=== PATIENT | male | born 1935 | race African-American/Black ===

== ENCOUNTER → 2016-06-27 | Outpatient (CLI) | payer OTHER ==
[~2016-06-27] MED LIST: ALBUTEROL17 GM INH; AMLODIPINE BESYL5 MG PO; ANDROGEL TOP; ASPIRIN PO; ASPIRIN81 MG PO; CALCITRIOL0.5 MCG PO; COUMADIN PO; COUMADIN10 MG PO; COUMADIN5 MG PO; COUMADIN7.5 MG PO; FOLIC ACID1 MG PO; FUROSEMIDE40 MG PO; IRON325 ( 651 PO; KLOR-CON PO; LASIX PO; LASIX20 MG PO; LASIX80 MG PO; LEVOFLOXACIN500 MG PO; LO-DOSE ASPIRIN81 M1 PO; LOPRESSOR PO; LOTREL 10/20 MG1 CAP PO; LOTREL 5/10 MG1 CAP PO; MUCINEX DM ER1 EACH PO; OMNICEF300 MG PO; POTASSIUM CHLO10 MEQ PO; PROTONIX PO; SODIUM BICARBO650 MG PO; STOOL SOFTENER250 MG PO; SYNTHROID PO; SYNTHROID0.1 MG PO; SYNTHROID125 PO; TRAZODONE PO; ULORIC40 MG PO; VITAMIN D350000 UNIT PO; ZAROXYLYN PO
[2016-06-27 10:07] LABS: BASOPHIL% 1.2 % (0-2.5); EOSINOPHIL# 0.1 X10e3 (0-0.7); EOSINOPHIL% 3.9 % (0.0-7.0); HEMATOCRIT 28.9 % (38.0-50.0); HEMOGLOBIN 9.6 gm/dL (13.0-16.0); LYMPHOCYTE# 1.1 X10e3 (1.0-3.5); LYMPHOCYTE% 34.5 % (17.0-45.0); MEAN CELL VOLUME 86.7 FL (83-96); MEAN CORPUSCULAR HEMOGLOBIN 28.8 PG (28-34); MEAN CORPUSCULAR HGB CONC 33.2 g/dL (30-36); MEAN PLATELET VOLUME 8.2 FL (6.5-11.5); MONOCYTE# 0.4 X10e3 (0-1.0); MONOCYTE% 11.7 % (3.0-12.0); NEUTROPHIL# 1.6 X10e3 (1.5-7.1); NEUTROPHIL% 48.7 % (40-75); PLATELET COUNT 135 X10e3 (140-420); RED BLOOD COUNT 3.33 X10e (3.90-5.60); RED CELL DISTRIBUTION WIDTH 16.1 % (11.0-15.5); WHITE BLOOD COUNT 3.2 X10e3 (4.0-10.5)
[2016-06-27 10:15] LABS: DIFF IND NO
[2016-06-27 10:25] LABS: URINE APPEARANCE CLEAR; URINE BILIRUBIN NEG (NEG); URINE BLOOD NEG (NEG); URINE COLOR YELLOW; URINE GLUCOSE NEG (NEG); URINE KETONE NEG (NEG); URINE LEUKOCYTE ESTERASE NEG (NEG); URINE NITRATE NEG (NEG); URINE PROTEIN NEG (NEG); URINE SPECIFIC GRAVITY 1.008 (1.003-1.035)
[2016-06-27 10:31] LABS: URINE SOURCE CLEAN CATCH
[2016-06-27 11:15] LABS: BUN/CREATININE RATIO 9.72; CALCIUM SERUM 9.4 mg/dL (8.4-10.2); CREATININE SERUM 3.6 mg/dL (0.6-1.4); GLOM FILT RATE Estimated 21.1 mL/min (>60); PHOSPHOROUS 3.8 mg/dL (2.5-4.6); POTASSIUM 4.4 mmol/L (3.5-5.1)
[2016-07-02 14:57] LABS: CALCIUM (PTHINTACT) 9.5 mg/dL (8.6-10.3)
== END | disposition home or self-care (01) ==
LOC: CLAB 09:27
PROVIDERS: Internal Medicine Nephrology
DX: N18.4 Chronic kidney disease, stage 4 (severe) (principal); D63.1 Anemia in chronic kidney disease; E55.9 Vitamin D deficiency, unspecified
CPT/HCPCS: 36415; 80048; 81003; 82306; 82310; 82728; 83540; 83550; 83970; 84100; 85025

== ENCOUNTER → 2016-07-04 | Outpatient (CLI) | payer OTHER ==
--- NOTE | ~2016-07-04 | US85 ---
[facility] A Service of [facility] RADIOLOGY TEXT RESULTS PATIENT: BRYAN ARRIAGA LOCATION: CNIV : 36 UNIT #: [id number] AGE: [address]: Jasbir Knight MD SEX: M ORDER DR: [id number] [facility] [address] [place], [place] [address] [id number] O MR#: [id number] Acc #: [id number] NAME: BRYAN ARRIAGA : 1935 SEX: M STUDY DATE/TIME: 07/04/2016 11:16 UNIT: CNIV ROOM: STUDY DESCRIPTION: LE MUBI Unilat or Ltd Stdy Attending Physician: Jasbir Knight M.D. Referring Physician: Jasbir Knight M.D. Ordering Physician: Jasbir Knight M.D. Primary Care Physician: Max Ambriz Jr., M.D. MEDICAL IMAGING REPORT This report is preliminary unless electronic signature is present EXAM Left leg vein Doppler 07/04/2016 INDICATION Left leg pain and swelling for the last 2 days. TECHNIQUE Venous ultrasound examination of the left lower extremity was performed using grayscale, spectral Doppler and color flow Doppler imaging. FINDINGS The examination is negative. There is no evidence of left lower extremity deep venous thrombus from the groin to the lower calf. Visualized greater saphenous vein is also patent. IMPRESSION Negative examination. No evidence of left lower extremity deep venous thrombosis. Dictated by... Lee Hollingsworth Jr., M.D. THIS IS AN ELECTRONICALLY VERIFIED REPORT Lee Hollingsworth Jr., M.D. at 07/04/2016 4:20 PM HOLLI/malathi TD: 07/04/2016 16:12 JOB #: [id number] MEDICAL IMAGING REPORT COPY
== END | disposition home or self-care (01) ==
LOC: CNIV 10:40
DX: N18.3 Chronic kidney disease, stage 3 (moderate) (principal); D63.1 Anemia in chronic kidney disease; E23.6 Other disorders of pituitary gland; D50.9 Iron deficiency anemia, unspecified; M79.89 Other specified soft tissue disorders
CPT/HCPCS: 93971

== ENCOUNTER → 2016-07-12 | Outpatient (CLI) | payer OTHER ==
[2016-07-12 11:24] LABS: BUN/CREATININE RATIO 11.17; CALCIUM SERUM 9.5 mg/dL (8.4-10.2); CREATININE SERUM 3.4 mg/dL (0.6-1.4); GLOM FILT RATE Estimated 18.7 mL/min (>60); POTASSIUM 4.5 mmol/L (3.5-5.1)
== END | disposition home or self-care (01) ==
LOC: CLAB 09:09
PROVIDERS: Internal Medicine Nephrology
DX: N18.4 Chronic kidney disease, stage 4 (severe) (principal)
CPT/HCPCS: 36415; 80048

== ENCOUNTER → 2016-08-05 | Outpatient (CLI) | payer OTHER | END | disposition home or self-care (01) | LOC: CSSDAY 09:55 | DX: D50.9 Iron deficiency anemia, unspecified (principal); Z79.899 Other long term (current) drug therapy | CPT/HCPCS: 96374; Q0138 ==

== ENCOUNTER → 2016-08-12 | Outpatient (CLI) | payer OTHER | END | disposition home or self-care (01) | LOC: CSSDAY 09:40 | DX: D50.9 Iron deficiency anemia, unspecified (principal); Z79.899 Other long term (current) drug therapy | CPT/HCPCS: 96374; Q0138 ==

== ENCOUNTER → 2016-09-10 | Outpatient (CLI) | payer OTHER ==
[2016-09-10 11:03] LABS: URINE APPEARANCE CLEAR; URINE BILIRUBIN NEG (NEG); URINE BLOOD NEG (NEG); URINE COLOR YELLOW; URINE GLUCOSE NEG (NEG); URINE KETONE NEG (NEG); URINE LEUKOCYTE ESTERASE NEG (NEG); URINE NITRATE NEG (NEG); URINE PH 7.5 (5-8); URINE PROTEIN NEG (NEG); URINE SPECIFIC GRAVITY 1.013 (1.003-1.035)
[2016-09-10 11:07] LABS: BASOPHIL% 1.2 % (0-2.5); EOSINOPHIL# 0.1 X10e3 (0-0.7); EOSINOPHIL% 3.1 % (0.0-7.0); HEMATOCRIT 32.1 % (38.0-50.0); HEMOGLOBIN 10.3 gm/dL (13.0-16.0); LYMPHOCYTE# 1.1 X10e3 (1.0-3.5); LYMPHOCYTE% 30.9 % (17.0-45.0); MEAN CELL VOLUME 88.3 FL (83-96); MEAN CORPUSCULAR HEMOGLOBIN 28.4 PG (28-34); MEAN CORPUSCULAR HGB CONC 32.2 g/dL (30-36); MEAN PLATELET VOLUME 8.4 FL (6.5-11.5); MONOCYTE# 0.5 X10e3 (0-1.0); MONOCYTE% 14.2 % (3.0-12.0); NEUTROPHIL# 1.8 X10e3 (1.5-7.1); NEUTROPHIL% 50.6 % (40-75); PLATELET COUNT 139 X10e3 (140-420); RED BLOOD COUNT 3.63 X10e (3.90-5.60); RED CELL DISTRIBUTION WIDTH 15.4 % (11.0-15.5); WHITE BLOOD COUNT 3.6 X10e3 (4.0-10.5)
[2016-09-10 11:09] LABS: DIFF IND NO
[2016-09-10 11:55] LABS: CALCIUM SERUM 9.8 mg/dL (8.4-10.2); CREATININE SERUM 4.4 mg/dL (0.6-1.4); GLOM FILT RATE Estimated 13.7 mL/min (>60); URIC ACID 5.1 mg/dL (2.6-7.2)
== END | disposition home or self-care (01) ==
LOC: CLAB 10:03
PROVIDERS: Internal Medicine Nephrology
DX: N18.4 Chronic kidney disease, stage 4 (severe) (principal)
CPT/HCPCS: 36415; 80048; 81003; 82728; 83540; 83550; 84550; 85025

== ENCOUNTER → 2016-11-04 | Outpatient (CLI) | payer OTHER ==
[2016-11-04 10:06] LABS: HEMATOCRIT 27.5 % (38.0-50.0); HEMOGLOBIN 9.1 gm/dL (13.0-16.0); MEAN CELL VOLUME 89.5 FL (83-96); MEAN CORPUSCULAR HEMOGLOBIN 29.8 PG (28-34); MEAN CORPUSCULAR HGB CONC 33.2 g/dL (30-36); MEAN PLATELET VOLUME 8.7 FL (6.5-11.5); RED BLOOD COUNT 3.07 X10e (3.90-5.60); RED CELL DISTRIBUTION WIDTH 15.2 % (11.0-15.5); WHITE BLOOD COUNT 3.8 X10e3 (4.0-10.5)
[2016-11-04 10:48] LABS: CALCIUM SERUM 9.3 mg/dL (8.4-10.2); CREATININE SERUM 3.4 mg/dL (0.6-1.4); GLOM FILT RATE Estimated 18.7 mL/min (>60); POTASSIUM 4.1 mmol/L (3.5-5.1)
== END | disposition home or self-care (01) ==
LOC: CLAB 09:17
PROVIDERS: Surgery Vascular Surgery
DX: I12.9 Hypertensive chronic kidney disease with stage 1 through stage 4 chronic kidney disease, or unspecified chronic kidney disease (principal); N18.9 Chronic kidney disease, unspecified
CPT/HCPCS: 36415; 80048; 85027

== ENCOUNTER → 2016-11-11 | Day surgery (SDC) | payer OTHER ==
--- NOTE | ~2016-11-11 | EKG ---
PATIENT: BRYAN ARRIAGA UNIT #: [id number] Ventricular Rate: 60 BPM Atrial Rate: 60 BPM P-R Interval: 304 ms QRS Duration: 196 ms Q-T Interval: 502 ms QTC Calculation(Bezet): 502 ms Calculated R Apison: -65 degrees Calculated T Apison: 104 degrees Diagnosis Line: Ventricular-paced rhythm Diagnosis Line: Abnormal ECG Diagnosis Line: When compared with ECG of 28-DEC-2015 10:19, Diagnosis Line: Rhythm p[aced Diagnosis Line: Confirmed by DENNISE HERNANDEZ MD ([id number]) on Diagnosis Line: 11/11/2016 8:27:10 PM INTERPRETING MD: SAKINA
--- NOTE | ~2016-11-11 | OR ---
Unit #: [id number] #: [id number] Patient: BRYAN ARRIAGA [id number] [address] [place], [place] [address] [id number] O MR#: [id number] NAME: BRYAN ARRIAGA ROOM: Date of Procedure: 11/11/2016 Admission Date: 11/11/2016 Surgeon: Karen Thompson M.D. : 1935 Attending Physician: Karen Thompson M.D. Primary Care Physician: Max Ambriz Jr., M.D. OPERATIVE REPORT FURNITURE ASSEMBLY SUPERVISOR Nikolay Aviles MD. PREOPERATIVE DIAGNOSIS Chronic renal failure. POSTOPERATIVE DIAGNOSIS Chronic renal failure. PROCEDURE PERFORMED Creation of a right brachiocephalic arteriovenous fistula. ANESTHESIA MAC. COMPLICATIONS None. ESTIMATED BLOOD LOSS 20 mL. SPECIMEN None. COMPLICATIONS None. INDICATIONS FOR PROCEDURE The patient is an 81-year-old gentleman with worsening renal function, who will require dialysis in the future. He had been recommended by his soda maker creation of a fistula in the event of needing dialysis. He was seen in the office with vein mapping demonstrating a good right cephalic vein for creation of a fistula. He was recommended a right radiocephalic fistula with possibility of brachiocephalic fistula. He was told of the planned procedure including the associated risks, benefits, complications, and alternatives including, but not limited to, possibility of bleeding, infection, fistula failure, fistula steal syndrome, and possible numbness to the forearm or hand. He understood and wished to proceed. DESCRIPTION OF PROCEDURE The patient was taken to the operating room, placed on the operating table Unit #: [id number] #: [id number] Patient: BRYAN ARRIAGA in supine position. Following MAC anesthesia, the patient's right arm circumferentially from the fingertips to the axilla was prepped and draped in the normal standard manner. Using ultrasound, the right cephalic vein at the level of the wrist was identified and was noted to be very small less than 2 mm in diameter. It was not appearing adequate for creation of a fistula. The radial artery was also noted to be quite calcified. Attention was directed to the antecubital fossa with ultrasound and the cephalic vein was identified. It appeared to be much improved in terms of its diameter and appeared to be more adequate for creation of a fistula. Decision was made to create the brachiocephalic fistula. 2% lidocaine was infused in a transverse fashion just below the antecubital fossa after the cephalic vein and the brachial artery had been mapped and marked on the skin. Incision was created transversely across the antecubital fossa and taken down through subcutaneous tissues with cautery. Dissection of the subcutaneous tissues with Metzenbaum scissors, identified the cephalic vein which was dissected free circumferentially along its entire length within the incision and then all side branches were doubly ligated and transected. The vein was then marked with a marking pen. The medial dissection overlying the brachial pulse was performed and the brachial artery was identified. The brachial artery was dissected free circumferentially proximally and distally and looped with vessel loops proximally and distally. Side branches were controlled with surgical clips. The patient was given heparin 10,000 units and allowed to circulate for 3 minutes. The cephalic vein was clamped distally with a right angle and proximally with a small bulldog and the vein was transected. The stump was tied with a 3-0 silk tie. The vein was distended with heparinized saline and appeared to be of excellent quality and caliber for a fistula. There was no obstruction to flushing. The vein was brought over to the brachial artery and proposed anastomotic site was identified. Using an 11-blade scalpel, an incision was created longitudinally on the brachial artery and extended with Ag scissors. The cephalic vein was anastomosed to the brachial artery with a 6-0 Prolene suture. Upon completion, flow was restored into the brachial artery and fistula with good thrill noted. There was a good radial pulse at the wrist. The heparin was reversed with protamine. A small amount of oozing was noted and controlled with cautery. No further bleeding was identified and the wound was closed in 2 layers with subcutaneous running 3-0 Vicryl suture and 4-0 Monocryl suture for skin. The incision was washed, dressing applied, and the procedure was terminated. The patient tolerated the procedure well and was taken to the recovery room in stable condition. All needle, sponge, and instrument counts were correct at the end of the case. Dictated by... Jody Guy/daria TD: 11/12/2016 03:30 JOB #: [id number] Unit #: [id number] #: [id number] Patient: BRYAN ARRIAGA OPERATIVE REPORT Page 1 of 1 X Karen Thompson MD PROCEDURE OPERATIVE NOTE
[2016-11-11 07:22] LABS: INR 1.2; PROTHROMBIN TIME (PATIENT) 13.1 SECONDS (10.0-11.7)
== END | disposition home or self-care (01) ==
LOC: CSUR 05:43
PROVIDERS: Surgery Vascular Surgery
DX: I12.9 Hypertensive chronic kidney disease with stage 1 through stage 4 chronic kidney disease, or unspecified chronic kidney disease (principal); N18.3 Chronic kidney disease, stage 3 (moderate); E03.9 Hypothyroidism, unspecified; I48.91 Unspecified atrial fibrillation; I25.10 Atherosclerotic heart disease of native coronary artery without angina pectoris; Q60.2 Renal agenesis, unspecified; E78.5 Hyperlipidemia, unspecified; M19.022 Primary osteoarthritis, left elbow; M19.041 Primary osteoarthritis, right hand; M17.11 Unilateral primary osteoarthritis, right knee; M19.012 Primary osteoarthritis, left shoulder; Z87.891 Personal history of nicotine dependence; Z79.899 Other long term (current) drug therapy; Z95.0 Presence of cardiac pacemaker; Z90.49 Acquired absence of other specified parts of digestive tract; Z98.890 Other specified postprocedural states
CPT/HCPCS: 85610; 93005; J0690; J1644; J2720; J3010

== ENCOUNTER → 2016-11-19 | Outpatient (CLI) | payer OTHER ==
[2016-11-19 09:48] LABS: URINE APPEARANCE CLEAR; URINE BILIRUBIN NEG (NEG); URINE BLOOD NEG (NEG); URINE COLOR YELLOW; URINE GLUCOSE NEG (NEG); URINE KETONE NEG (NEG); URINE LEUKOCYTE ESTERASE NEG (NEG); URINE NITRATE NEG (NEG); URINE PH 6.5 (5-8); URINE PROTEIN NEG (NEG); URINE UROBILINOGEN 0.2 MG/DL (NEG)
[2016-11-19 09:49] LABS: BASOPHIL% 0.8 % (0-2.5); EOSINOPHIL# 0.2 X10e3 (0-0.7); EOSINOPHIL% 3.8 % (0.0-7.0); HEMATOCRIT 26.5 % (38.0-50.0); LYMPHOCYTE# 0.9 X10e3 (1.0-3.5); LYMPHOCYTE% 21.7 % (17.0-45.0); MEAN CELL VOLUME 90.1 FL (83-96); MEAN CORPUSCULAR HEMOGLOBIN 30.5 PG (28-34); MEAN CORPUSCULAR HGB CONC 33.8 g/dL (30-36); MEAN PLATELET VOLUME 7.9 FL (6.5-11.5); MONOCYTE# 0.5 X10e3 (0-1.0); MONOCYTE% 10.8 % (3.0-12.0); NEUTROPHIL# 2.6 X10e3 (1.5-7.1); NEUTROPHIL% 62.9 % (40-75); PLATELET COUNT 129 X10e3 (140-420); RED BLOOD COUNT 2.94 X10e (3.90-5.60); WHITE BLOOD COUNT 4.2 X10e3 (4.0-10.5)
[2016-11-19 09:51] LABS: DIFF IND NO
[2016-11-19 10:00] LABS: URINE SOURCE CLEAN CATCH
[2016-11-19 11:10] LABS: CALCIUM SERUM 9.6 mg/dL (8.4-10.2); CREATININE SERUM 3.7 mg/dL (0.6-1.4); GLOM FILT RATE Estimated 16.9 mL/min (>60); PHOSPHOROUS 2.8 mg/dL (2.5-4.6); POTASSIUM 4.2 mmol/L (3.5-5.1)
[2016-11-21 16:09] LABS: CALCIUM (PTHINTACT) 9.7 mg/dL (8.6-10.3)
== END | disposition home or self-care (01) ==
LOC: CLAB 08:54
PROVIDERS: Internal Medicine Nephrology
DX: N18.5 Chronic kidney disease, stage 5 (principal); E55.9 Vitamin D deficiency, unspecified
CPT/HCPCS: 36415; 80048; 81003; 82306; 82310; 83970; 84100; 85025

== ENCOUNTER 2016-12-02 16:34 | Inpatient (IN) | payer OTHER ==
[~2016-12-02] VITALS: Ht 188 cm; Wt 169.4 kg
--- NOTE | ~2016-12-02 | DS ---
Unit #: [id number] #: [id number] Patient: BRYAN ARRIAGA [id number] [address] [place], [place] [address] [id number] I MR#: [id number] NAME: BRYAN ARRIAGA ROOM: 5 Age: 81 Sex: M Admission Date: 12/02/2016 : 1935 Discharge Date: 12/05/2016 Attending Physician: Jose Antonio Hinojosa M.D. Primary Care Physician: Max Ambriz Jr., M.D. DISCHARGE SUMMARY REVISED REPORT DISCHARGE DIAGNOSES 1. Acute on chronic kidney disease. 2. Mild fluid overload, multifactorial. 3. Dyspnea secondary to deconditioning and no other clinical pathology. 4. Permanent atrial fibrillation. 5. Status post permanent pacemaker. 6. Hypothyroidism. 7. Anemia. 8. Anxiety. 9. Nonobstructive coronary artery disease. 10. Moderate pulmonary hypertension. 11. Diastolic dysfunction, left ventricular ejection fraction of 50% to 55%. DISCHARGE MEDICATIONS 1. Sodium bicarb 650 mg 2 tablets p.o. every 12 hours. 2. Coumadin 10 mg p.o. every Friday through Friday and 7.5 mg p.o. every Friday and Friday. 3. Norvasc 5 mg p.o. at bedtime. 4. Lopressor 12.5 mg p.o. twice a day. 5. Lasix 80 mg every a.m. and 40 mg every p.o. 6. Protonix 40 mg p.o. daily. 7. Synthroid 100 mcg p.o. daily. 8. Folic acid 1 mg p.o. daily. 9. Calcitrol 1 mcg p.o. on Friday, Friday and Friday. 10. Vitamin D3 50,000 units p.o. weekly. 11. Uloric 40 mg p.o. daily. 12. Zaroxolyn 5 mg every Friday only. 13. Potassium chloride 10 mEq p.o. daily. HOSPITAL COURSE This is an 81-year-old -[place] male known to Dr. Hinojosa with a prior history of permanent AFib, permanent pacemaker placed in 2003, hypertension, hyperlipidemia, nonobstructive coronary artery disease, solitary kidney with chronic kidney disease, and ejection fraction of 54%. He follows with Dr. Leonard, nephrology and had an AV fistula placed a few weeks ago in anticipation of future dialysis. The patient presented to the emergency room with increasing dyspnea on exertion and lower extremity edema. He also had some abdominal swelling. He denied any angina, chest pain or pain his neck. His chest x-ray showed mild vascular congestion and mild diffuse bilateral interstitial prominence. His EKG showed AFib with controlled ventricular rates. Patient was admitted for evaluation Unit #: [id number] #: [id number] Patient: BRYAN ARRIAGA and management. Nephrology was consulted to manage his diuresis. He was placed on fluid restriction with strict I and O and daily weights. He was diuresed with Lasix and Zaroxolyn. His fluid overload status improved; however, he continued to complain of dyspnea. Pulmonary was consulted to evaluate for underlying COPD. On 12/05/2016, Dr. Hartley did see the patient. He will followup with him as outpatient for PFTs and sleep studies. Today he feels better with no shortness of air, no chest pain and no palpitations. His volume status is improved. He is stable for discharge today. He will be discharged home after being seen by Dr. Hartley and Dr. Leonard. We will followup with him in the office in one month. He is to remain on a 2000 mL fluid restriction. We will ask [facility] to see him for possible home PT and OT. PHYSICAL EXAMINATION VITAL SIGNS: Temp 98.7, heart rate 59, respiratory rate 20, blood pressure 121/44. NECK: No JVD. CHEST: Clear to auscultation. Nonlabored respirations. HEART: S1 and S2. Irregularly, irregular rhythm. ABDOMEN: Soft, nontender and nondistended. EXTREMITIES: Pedal pulses are palpable. There is 1+ pedal edema. DIAGNOSTIC STUDIES LABORATORY RESULTS: Glucose 86, BUN 36, creatinine 3.7, sodium 137, potassium 3.8, chloride 102, magnesium 1.9. INR yesterday was 2.7. Hemoglobin 8.8, hematocrit 25.7, white blood cell count 4, platelets 115. CARDIOVASCULAR STUDIES: EKG reveals a paced rhythm. Echocardiogram done 12/03/2016 shows LVEF of 50% to 55%, moderate MR and TR, RVSP 51 mmHg consistent with moderate pulmonary hypertension, and mild left ventricular hypertrophy. DISCHARGE INSTRUCTIONS 1. If okay with Dr. Hartley and Dr. Leonard, the patient will be discharged home today to followup with Dr. Hinojosa in the office on 01/06/2017 at 3:00 p.m. 2,000 mL fluid restriction at home. 2. Will ask [facility] to see patient for possible home PT and OT. 3. Have PT and INR checked in our office in two weeks. 4. Home medications per medication reconciliation sheet. Prescriptions provided for new medications. 5. Follow with Dr. Hartley in two to four weeks. 6. Follow with Dr. Leonard as his instructions. 14. 1. Dictated by... Maryam Flores APRN for Jose Antonio Hinojosa M.D. JONATHON/henry TD: 12/06/2016 11:43 JOB #: [id number] CC: Herminio/dlision Please Delete Unit #: [id number] #: [id number] Patient: DEVON ARRIAGAO DISCHARGE SUMMARY Page 1 of 1 X X DISCHARGE SUMMARY
--- NOTE | ~2016-12-02 | HP ---
Unit #: [id number] #: [id number] Patient: BRYNA ARRIAGA [id number] [address] [place], [place] [address] [id number] I MR#: [id number] NAME: BRYAN ARRIAGA ROOM: 565 Age: 81 Sex: M Admission Date: 12/02/2016 : 1935 Attending Physician: Jose Antonio Hinojosa M.D. Referring Physician: Jose Antonio Hinojosa M.D. Primary Care Physician: Max Ambriz Jr., M.D. HISTORY AND PHYSICAL HISTORY OF PRESENT ILLNESS This is an 81-year-old male who is known to Dr. Hinojosa who has permanent atrial fibrillation and has a pacemaker that was placed back in 2013, hypertension, and hyperlipidemia, as well as cath that showed some nonobstructive CAD. His last ejection fraction was found to be 54%. Patient also has chronic kidney disease. He has a solitary kidney from . He does follow with Dr. Leonard. He had an AV fistula placed a few weeks ago for anticipation of dialysis in the terminologist. Patient came to the emergency room with complaints of increased shortness of breath. He was sent by Dr. Ambriz for admission. He complained to Dr. Ambriz that his exertional shortness of breath was worsening, and he was very swollen. He had increased abdominal girth. His states that he cannot hardly button his shirt, and that has happened over the past couple of months. He denies any chest pain or pain in his neck or bilateral jaw, shoulders, arms, or elbows. He denies any palpitations, no dizziness, presyncope, or syncope. He has not had any increased cough, fever, or chills. In the emergency room, patient's blood pressure was 147/64, heart rate 61, respirations 16, temperature 97.3, and O2 saturation was 100% on room air. His chest x-ray showed some mild vascular congestion and mild diffuse bilateral interstitial prominence. His EKG shows atrial fibrillation with rates controlled at 63 beats per minute. Initial labs: BUN is 30 with creatinine of 3.6 and eGFR is 17.4. BNP is 182. INR is 2.7. WBC 3.6, hemoglobin 8.7, and platelets are down to 122,000. Initial cardiac enzymes are negative. Patient was admitted for further evaluation and management. Also, Nephrology was consulted. PAST MEDICAL HISTORY 1. Stage 4 chronic kidney disease. Had an AV fistula placed recently. 2. Nonobstructive CAD. Last cardiac cath in 2011 showed left main normal, LAD 20-30% stenosis, left circumflex 10-30%, and RCA had 20% stenosis. 3. In 2011, 2D echo with LVEF of 54%, mild MR, and mild TR. 4. Permanent atrial fibrillation, on anticoagulation with Coumadin. 5. Permanent pacemaker, [employer], for sick sinus syndrome, in 2013. 6. Hypertension. 7. Hyperlipidemia. 8. Hypothyroidism. 9. Congenital solitary kidney abnormality. 10. Former smoker. 11. Osteoarthritis. 12. Anemia due to chronic kidney disease. Unit #: [id number] #: [id number] Patient: BRYAN ARRIAGA 13. Obesity. PAST SURGICAL HISTORY 1. Cholecystectomy. 2. Permanent pacemaker in 2013. 3. AV fistula placement. 4. Finger surgery. 5. December 2015 colonoscopy with snare polypectomy. 6. December 2015 EGD showed mild gastritis and a small hiatal hernia, otherwise normal. HOME MEDICATIONS 1. Calcitriol 1 mcg p.o. on Friday, Friday, and Friday. 2. Uloric 40 mg p.o. daily. 3. Sodium bicarbonate 1300 mg p.o. twice daily. 4. Protonix 40 mg p.o. daily. 5. Amlodipine 5 mg p.o. daily at bedtime. 6. Vitamin D3 at 50,000 units p.o. weekly. 7. Lasix 40 mg p.o. b.i.d. 8. Folic acid 1 mg p.o. daily. 9. Coumadin 10 mg daily except 1-1/2 tablets on Friday and . 10. Synthroid 100 mcg p.o. daily. ALLERGIES No known drug allergies. SOCIAL HISTORY Patient lives with his spouse. He quit smoking more than 22 years ago. No alcohol or illicit drug abuse. FAMILY HISTORY His brother from a myocardial infarction. His mother had a pacemaker and congestive heart failure. REVIEW OF SYSTEMS CONSTITUTIONAL: Denies fever or chills. Has recently gained maybe up to 10 pounds over the last couple of months. HEENT: No visual or hearing changes. NECK: No lymphadenopathy or thyromegaly and no difficulty swallowing. CARDIOVASCULAR: Denies chest pain and denies palpitations. Increased lower extremity edema noted. PULMONARY: Increased shortness of breath with minimal exertion which is worsening. Has three or four pillow orthopnea which has not changed. Denies paroxysmal nocturnal dyspnea. GASTROINTESTINAL: Denies nausea, vomiting, diarrhea, or abdominal pain. NEUROLOGICAL: No focal weakness. PHYSICAL EXAMINATION GENERAL: Patient is an 81-year-old male in no acute respiratory distress. He is awake, alert, and oriented. VITAL SIGNS: Blood pressure is 128/50, heart rate 62, respirations 18, temperature 97.4, and O2 saturations 98% on room air. NECK: Trachea midline. No thyromegaly or lymphadenopathy. Increased JVD. HEART: S1 and S2, regular rate and rhythm. A grade 1/6 systolic murmur at the apex. No clicks or rubs. LUNGS: Diminished but clear. ABDOMEN: Obese, distended, and slightly firm. EXTREMITIES: Pedal pulses are palpable. With 1+ pedal edema. Unit #: [id number] #: [id number] Patient: BRYAN ARRIAGA DIAGNOSTIC STUDIES LABORATORY: Glucose 101, BUN 29, creatinine 3.5, eGFR 18, sodium 136, potassium 3.7, chloride 102, CO2 of 27, calcium 9.2, phosphorus is 2.8, total protein 7.6, albumin 4.2, bilirubin total 0.8, AST 20, ALT 10, and alkaline phosphatase is 126. BNP is 182. TSH is 3.66. WBC 3.8, hemoglobin 8.4, hematocrit 25.7, and platelets are 121,000. Initial cardiac enzymes: CK-MB is less than 1.0 and troponin less than 0.05. Pro time is 29.4 and INR is 2.7. IMAGING: Chest x-ray shows mild cardiac enlargement, mild vascular congestion, and mild diffuse bilateral interstitial prominence. CARDIOLOGY: EKG shows atrial fibrillation with controlled ventricular rate of 63 beats per minute. Ventricular-paced underlying atrial fibrillation. IMPRESSION 1. Dyspnea on exertion, questionable diastolic dysfunction or worsening chronic kidney failure. 2. Permanent atrial fibrillation, on anticoagulation. 3. Permanent pacemaker. 4. Hypertension. 5. Hyperlipidemia. 6. Anemia of chronic disease. 7. History of gout. 8. Obesity. PLAN 1. Cardiology consulted to assist with evaluation and management. 2. Nephrology has been consulted since his BUN and creatinine are elevated for their recommendations or for diuresing. They have ordered Lasix 40 mg IV b.i.d. with a 1500 mL/24-hour fluid restriction with strict intake and output and daily weights. 3. Patient is going to be started on Epogen for his anemia. 4. Obtain a 2D echo to evaluate LV function and valves. 5. Add a T4 to his TSH. 6. Add low-dose beta cynthia metoprolol 12.5 mg p.o. twice daily because he has a history of some mild nonobstructive CAD and also for his possible diastolic dysfunction. 7. Dietitian to advise on a weight-reducing diet, encourage lifestyle changes, and increase activity. PT/OT to evaluate and treat. 8. On exam, there are no signs or symptoms of unstable angina, cardiac enzymes are negative, and EKG does not show anything acute. 9. Further recommendations pending Nephrology. Dictated by Savanna Bill A.P.R.N. for Jody Brandt/florentin TD: 12/03/2016 14:58 JOB #: [id number] Unit #: [id number] #: [id number] Patient: BRYAN ARRIAGA HISTORY AND PHYSICAL Page 1 of 1 X Savanna Bill APRN HISTORY AND PHYSICAL
--- NOTE | ~2016-12-02 | CR63 ---
[facility] A Service of [facility] & [facility] RADIOLOGY TEXT RESULTS PATIENT: BRYAN ARRIAGA LOCATION: [facility] [id number] : [birth year] UNIT #: [id number] AGE: [address]: Jose Antonio Hinojosa MD SEX: M ORDER DR: [id number] [facility] [address] [place], [place] [address] [id number] I MR#: [id number] Acc #: [id number] NAME: BRYAN ARRIAGA : 1935 SEX: M STUDY DATE/TIME: 12/02/2016 21:35 UNIT: [facility] ROOM: [facility] STUDY DESCRIPTION: CR Chest 2 View Attending Physician: Jose Antonio Hinojosa M.D. Ordering Physician: Ed Doctor [id number] [facility] Primary Care Physician: Max Ambriz Jr., M.D. MEDICAL IMAGING REPORT This report is preliminary unless electronic signature is present EXAM PA and lateral chest HISTORY Shortness of air for 3 months. FINDINGS Two views of the chest demonstrate mild cardiac enlargement and mild vascular congestion. There is also mild diffuse bilateral interstitial prominence and this could be due to interstitial edema or nonspecific pneumonitis. No focal infiltrates or effusions. Left subclavian pacer lead extends into the right ventricle. Dictated by... David Rao M.D. THIS IS AN ELECTRONICALLY VERIFIED REPORT David Rao M.D. at 12/03/2016 11:45 PM DFL/aubrey TD: 12/03/2016 08:55 JOB #: [id number] MEDICAL IMAGING REPORT Page 1 of 1 COPY
--- NOTE | ~2016-12-02 | CO ---
Unit #: [id number] #: [id number] Patient: BRYAN ARRIAGA [id number] [facility]. [place], [place] [address] [id number] MR#: [id number] NAME: BRYAN ARRIAGA ROOM: 565 Age: 81 Sex: M Admission Date: 12/02/2016 : 1935 Attending Physician: Jose Antonio Hinojosa M.D. Primary Care Physician: Max Ambriz Jr., M.D. CONSULTATION REPORT HISTORY OF PRESENT ILLNESS Mr. Arriaga is an 81-year-old white male, we were asked to see for dyspnea. He is followed by Dr. Hinojosa and has a history of permanent atrial fibrillation, permanent pacemaker, hypertension, hyperlipidemia, nonobstructive coronary artery disease with normal ejection fraction, and chronic kidney disease stage 4 to 5. He has a solitary kidney from . He complains of a two-year history of dyspnea on exertion. Has been very swollen in his lower extremities and his abdomen. He has had no fever, chills, sweats, chest pain, or purulent sputum. He does have a history of snoring, restless sleep, frequent awakenings, and daytime sleepiness. He had been scheduled to see us at the Sleep Lab at [facility], but could not make it that day. In the emergency room, his blood pressure was 147/64, pulse was 61, respiratory rate 16, afebrile, and O2 sats were 100% on room air. Chest x-ray showed pacemaker in the left upper quadrant of the chest, possibly some mild pulmonary vascular congestion. She has atrial fibrillation with a rate of 63. Creatinine was 3.6, GFR was 17.4. BNP was 182. INR was 1.7. White count was 3600, hemoglobin was 8.7, and platelet count 122,000. Cardiac enzymes are negative. BNP was normal. We were asked to consult on dyspnea. He does have a history of smoking, having quit 20 to 25 years ago. He accumulated probably a 53-[id number]-osgo history. PAST MEDICAL HISTORY Significant for stage 4 chronic kidney disease; permanent atrial fibrillation, on anticoagulation with Coumadin with permanent pacemaker for sick sinus syndrome; history of hypertension; hyperlipidemia; hypothyroidism; congenital solitary left kidney; osteoarthritis; and history of morbid obesity. PAST SURGICAL HISTORY Cholecystectomy, pacemaker implant in 1993, AV fistula placement, finger surgery, colonoscopy with polypectomy, and history of gastritis and small hiatal hernia in 2016. HOME MEDICATIONS Calcitriol, Uloric, bicarbonate, Protonix, amlodipine, vitamin D3, Lasix, folic acid, Coumadin, and Synthroid. ALLERGIES No known allergies. SOCIAL HISTORY Lives with spouse. No smoking in 20 to 25 years. No alcohol or illicit Unit #: [id number] #: [id number] Patient: BRYAN ARRIAGA. Accumulated a [id number]-[id number] history of smoking. FAMILY HISTORY Positive for myocardial infarction, permanent pacemaker, and CHF. PHYSICAL EXAMINATION VITAL SIGNS: Blood pressure is 101/38, pulse 65, respiratory rate 20, and afebrile. HEENT: Normocephalic, atraumatic. Pupils are equal, round, and reactive. Sclerae nonicteric. Nasal passages patent. Has dentures in place. Mallampati IV. NECK: Thick, supple. Trachea midline. No cervical or supraclavicular lymphadenopathy. LUNGS: Clear to auscultation and percussion. CARDIAC: Regular rate and rhythm. ABDOMEN: Nontender. Bowel sounds present. No hepatosplenomegaly. EXTREMITIES: Without clubbing, cyanosis, or edema. NEUROLOGIC: IMPRESSION 1. Dyspnea, likely multifactorial, secondary to obesity, decondition, volume excess, mild congestive heart failure, and atrial fibrillation. 2. Chronic kidney disease. 3. Anemia. 4. DNR status. PLAN Diuresis preload-afterload reduction. O2 to maintain adequate saturation. Diuresis. We will check spirometry. Further recommendations pending this. Dictated by... Brian Hartley M.D. MARLIN/daria TD: 12/05/2016 16:46 JOB #: [id number] CONSULTATION REPORT Page 1 of 1 X Brian Hartley MD CONSULTATION REPORT
--- NOTE | ~2016-12-02 | A ---
[facility] Therapy DATE: 12/03/16 Patient: BRYAN CUNNINGHAMFORD Physician: DAYAN Address: [address] [address] Room/Bed: [address] [place] [address], Zip: [place] [address] Admit Date: 12/02/16 Date of : 36 Height: 6 2 Weight: 371 168.6 NUTRITIONAL ASSESSMENT: REASON: High BMI + MD consult re: weight reducing diet education Admitting dx: 81 y/o male admitted with acute systolic failure PMH: No new H&P available Stage IV CKD, GIB, A-fib, gout, hypothyroidism Anthropometrics: Ht: 74", Wt: 168.6 kg, BMI: 47 (stage III obese) Labs: BUN 29, creat 3.5, GFR 18.0, lipid panel and A1C WNL in 2013 Assessment: Chart reviewed, events noted. See admitting dx and PMH as stated above. RD consulted to provide weight loss diet education, which was given both verbally and with handouts to the patient and his family. Pt received the following handouts: weight loss tips, weight loss cooking tips, 1800 calorie/day 5-day sample meal plan. Pt's does the cooking, so info was shared with her with RD contact number. Pt admits he does not eat many F/V and drinks sweet tea and regular cokes. RD discussed dietary modifications as well as warfarin and vitamin K. Pt and family showed moderate understand and motivation to follow diet. Potential barriers include advanced age, education level and ability to shop for and cook healthy meals. See recs below. Recommendations: 1. Agree with healthy heart diet to promote a gradual weight loss towards a healthy BMI range. Fluids per MD. 2. RD provided weight loss diet education as described above. Patient could benefit from outpatient education as well along with his , who does the shopping/cooking. 3. Suggest checking new A1C and lipid panel. 4. Please consult with any further nutritional needs prior to discharge. Respectfully, Kenia Nguyen, MONIQUE, LD [employer] [facility] DATE: 12/03/16 Patient: BRYAN CORINA Physician: DAYAN Address: [address] [address] Room/Bed: [address] [place] [address], Zip: [place] [address] Admit Date: 12/02/16 Date of : 36 Height: 6 2 Weight: 371 168.6 [facility] cc: client file
--- NOTE | ~2016-12-02 | CO ---
Unit #: [id number] #: [id number] Patient: BRYAN ARRIAGA [id number] [address] [place], [place] [address] [id number] MR#: [id number] NAME: BRYAN ARRIAGA ROOM: 565 Age: 81 Sex: M Admission Date: 12/02/2016 : 1935 Attending Physician: Jose Antonio Hinojosa M.D. Primary Care Physician: Max Ambriz Jr., M.D. Requesting Physician: Jose Antonio Hinojosa M.D. Consultation Date: 12/03/2016 CONSULTATION REPORT REASON FOR CONSULTATION Chronic kidney disease, stage 4. Thank you very much for this consultation. HISTORY OF PRESENT ILLNESS The patient is a very pleasant 81-year-old -Q[place] male with a history of CKD stage 4 who was followed by me in the office. He has had some progressive chronic kidney disease recently due to solitary kidney and hypertensive nephrosclerosis with creatinine currently running in the upper 3. His creatinine has been as high as 4.4 as an outpatient. He has seen Dr. Thompson and had an AV fistula placed in his right upper extremity last month, which is maturing. To this point he has had no tissues with uremia or worsening fluid overload that could not be controlled with his Lasix and therefore, has had no need to initiate dialysis. Recently, however, he has had progressively worsening dyspnea on exertion and some weakness. He denies any chest pain. No nausea, vomiting, or diarrhea. He has had no real changes in his medications recently. No hematuria or dysuria. He states he has had good urine output. He denies any other complaints. Upon admission, his creatinine was stable at 3.5 and electrolytes were within normal range. Cardiology has ordered an echocardiogram and further workup. Chest x-ray did show some possible pulmonary vascular congestion. PAST MEDICAL HISTORY Significant for CKD stage 4, atrial fibrillation, gout, hypothyroidism, hypertension, coronary artery disease, hyperlipidemia. He is status post pacemaker placement. CURRENT MEDICATIONS As per his med rec. FAMILY HISTORY Noncontributory. SOCIAL HISTORY He lives at home with his . Denies any tobacco, alcohol, or illicits. REVIEW OF SYSTEMS A twelve system review of system is negative except as per HPI. PHYSICAL EXAMINATION VITAL SIGNS: Blood pressure 120s to 150s/50s to 70s, heart rate 60s, respirations 15-19, T. max 97.8. Unit #: [id number] #: [id number] Patient: BRYAN ARRIAGA GENERAL: He is a well nourished 81-year-old -Q[place] male in no acute distress. HEENT: Head is normocephalic and atraumatic. Pupils equal, round, reactive to light. Oropharynx is clear. NECK: Supple. No JVD. LUNGS: Clear to auscultation bilaterally. HEART: Irregular with no murmurs, gallops or rubs. ABDOMEN: Soft, nontender with a positive bowel sounds. EXTREMITIES: Trace lower extremity edema. NEUROLOGIC: Cranial nerves II to XII are intact to testing. Gait were not assessed. SKIN: Warm and dry. DIAGNOSTIC STUDIES LABORATORY STUDIES: Sodium 136, potassium 3.7, chloride 102, bicarb 27, BUN 29, creatinine 3.5, glucose 101, calcium 9.2, INR 2.7. IMPRESSION/PLAN 1. Chronic kidney disease, stage 4. Creatinine does appear stable near baseline. He does have some worsening fluid overload as evidenced by his chest x-ray. He is status post AV fistula placement last month by Dr. Thompson, but at this time has not absolute indication for dialysis initiation. If he were to progress to end stage renal disease, he would need a PermCath placed as his AV fistula is immature. 2. Dyspnea on exertion/shortness of breath. This is likely multifactorial related to some fluid overload, possibility of diastolic dysfunction or pulmonary hypertension as well. Cardiology is following and he has been started on IV Lasix. Will plan on increasing the Lasix to 40 mg IV twice daily with close following of his creatinine and potassium levels. I will follow up his echo and will have further recommendations as his hospital course progresses. 3. Anemia of chronic kidney disease. Will check iron studies. Will go ahead and start Epo today. 4. Hypertension. Blood pressure is at goal. 5. Gout. This is stable on Uloric. 6. Metabolic acidosis at goal on sodium bicarb. The above has been discussed with patient and his who are in agreement with the plan. Will have further recommendations as his hospital course progresses. Thank you very much for consultation. Dictated by... Timothy Dan M.D. PRICILA/henry TD: 12/03/2016 11:44 JOB #: [id number] Unit #: [id number] #: [id number] Patient: BRYAN ARRIAGA CONSULTATION REPORT Page 1 of 1 X Timothy Dan MD X CONSULTATION REPORT
--- NOTE | ~2016-12-02 | EKG ---
PATIENT: BRYAN ARRIAGA UNIT #: [id number] Ventricular Rate: 63 BPM Atrial Rate: 375 BPM QRS Duration: 88 ms Q-T Interval: 408 ms QTC Calculation(Bezet): 417 ms Calculated R [place]: 10 degrees Calculated T [place]: -60 degrees Diagnosis Line: Atrial fibrillation with frequent paced beats Diagnosis Line: ST and T wave abnormality, consider inferior Diagnosis Line: ischemia Diagnosis Line: ST and T wave abnormality, consider anterolateral Diagnosis Line: ischemia Diagnosis Line: Abnormal ECG Diagnosis Line: When compared with ECG of 11-NOV-2016 06:23, Diagnosis Line: Vent. rate has increased BY 3 BPM Diagnosis Line: Confirmed by DENNISE HERNANDEZ MD ([id number]) on Diagnosis Line: 12/02/2016 9:49:57 PM INTERPRETING MD: SAKINA
[~2016-12-02 16:34] MED LIST changes: -COUMADIN10 MG PO; -COUMADIN7.5 MG PO; -FOLIC ACID1 MG PO; -FUROSEMIDE40 MG PO; -LASIX80 MG PO; -LOPRESSOR PO; -TRAZODONE PO; -ZAROXYLYN PO
[2016-12-02] MEDS ORDERED: FOLIC ACID1 MG PO (17:34)
[2016-12-02] MEDS ORDERED: LASIX20 MG PO (17:34)
[2016-12-02] MEDS ORDERED: COUMADIN PO (17:35)
[2016-12-02] MEDS ORDERED: SYNTHROID PO (17:35)
[2016-12-02 17:44] LABS: BASOPHIL% 1.4 % (0-2.5); EOSINOPHIL# 0.1 X10e3 (0-0.7); EOSINOPHIL% 3.7 % (0.0-7.0); HEMATOCRIT 26.9 % (38.0-50.0); HEMOGLOBIN 8.7 gm/dL (13.0-16.0); LYMPHOCYTE% 26.9 % (17.0-45.0); MEAN CELL VOLUME 91.5 FL (83-96); MEAN CORPUSCULAR HEMOGLOBIN 29.5 PG (28-34); MEAN CORPUSCULAR HGB CONC 32.3 g/dL (30-36); MEAN PLATELET VOLUME 8.6 FL (6.5-11.5); MONOCYTE# 0.5 X10e3 (0-1.0); MONOCYTE% 13.4 % (3.0-12.0); NEUTROPHIL% 54.6 % (40-75); PLATELET COUNT 122 X10e3 (140-420); RED BLOOD COUNT 2.94 X10e (3.90-5.60); RED CELL DISTRIBUTION WIDTH 15.1 % (11.0-15.5); WHITE BLOOD COUNT 3.6 X10e3 (4.0-10.5)
[2016-12-02 17:45] LABS: DIFF IND NO
[2016-12-02 18:18] LABS: ALBUMIN SERUM 4.2 g/dL (3.5-5.0); BILIRUBIN, DIRECT 0.2 mg/dL (0.0-0.2); BILIRUBIN,INDIRECT 0.6 mg/dL (0.0-0.9); BILIRUBIN,TOTAL 0.8 mg/dL (0.2-2.0); BUN/CREATININE RATIO 8.33; CALCIUM SERUM 9.4 mg/dL (8.4-10.2); CREATININE SERUM 3.6 mg/dL (0.6-1.4); GLOM FILT RATE Estimated 17.4 mL/min (>60); POTASSIUM 3.9 mmol/L (3.5-5.1); PROTEIN TOTAL SERUM 7.6 g/dL (6.0-8.3)
[2016-12-02 19:48] LABS: POC - CKMB <1.0 ng/mL (0.0-7.9); POC - TROPONIN <0.05 ng/mL (<=0.05)
[2016-12-03 06:04] LABS: BASOPHIL# 0.1 X10e3 (0-0.3); BASOPHIL% 1.4 % (0-2.5); EOSINOPHIL# 0.1 X10e3 (0-0.7); EOSINOPHIL% 3.7 % (0.0-7.0); HEMATOCRIT 25.7 % (38.0-50.0); HEMOGLOBIN 8.4 gm/dL (13.0-16.0); LYMPHOCYTE# 0.9 X10e3 (1.0-3.5); LYMPHOCYTE% 23.7 % (17.0-45.0); MEAN CELL VOLUME 91.5 FL (83-96); MEAN CORPUSCULAR HEMOGLOBIN 29.8 PG (28-34); MEAN CORPUSCULAR HGB CONC 32.6 g/dL (30-36); MONOCYTE# 0.5 X10e3 (0-1.0); MONOCYTE% 13.7 % (3.0-12.0); NEUTROPHIL# 2.2 X10e3 (1.5-7.1); NEUTROPHIL% 57.5 % (40-75); PLATELET COUNT 121 X10e3 (140-420); RED BLOOD COUNT 2.81 X10e (3.90-5.60); RED CELL DISTRIBUTION WIDTH 14.7 % (11.0-15.5); WHITE BLOOD COUNT 3.8 X10e3 (4.0-10.5)
[2016-12-03 06:09] LABS: DIFF IND NO
[2016-12-03 06:21] LABS: INR 2.7
[2016-12-03 06:25] LABS: PROTHROMBIN TIME (PATIENT) 29.4 SECONDS (10.0-11.7)
[2016-12-03 06:46] LABS: BUN/CREATININE RATIO 8.28; CALCIUM SERUM 9.2 mg/dL (8.4-10.2); CREATININE SERUM 3.5 mg/dL (0.6-1.4); POTASSIUM 3.7 mmol/L (3.5-5.1)
[2016-12-04 07:13] LABS: BASOPHIL% 1.3 % (0-2.5); EOSINOPHIL# 0.1 X10e3 (0-0.7); EOSINOPHIL% 3.2 % (0.0-7.0); LYMPHOCYTE# 0.9 X10e3 (1.0-3.5); LYMPHOCYTE% 23.5 % (17.0-45.0); MEAN CELL VOLUME 90.8 FL (83-96); MEAN CORPUSCULAR HEMOGLOBIN 30.3 PG (28-34); MEAN CORPUSCULAR HGB CONC 33.3 g/dL (30-36); MEAN PLATELET VOLUME 9.4 FL (6.5-11.5); MONOCYTE# 0.5 X10e3 (0-1.0); MONOCYTE% 11.7 % (3.0-12.0); NEUTROPHIL# 2.4 X10e3 (1.5-7.1); NEUTROPHIL% 60.3 % (40-75); PLATELET COUNT 117 X10e3 (140-420); RED BLOOD COUNT 2.97 X10e (3.90-5.60); RED CELL DISTRIBUTION WIDTH 14.9 % (11.0-15.5); WHITE BLOOD COUNT 3.9 X10e3 (4.0-10.5)
[2016-12-04 07:20] LABS: DIFF IND NO
[2016-12-04 07:38] LABS: BUN/CREATININE RATIO 8.85; CALCIUM SERUM 9.2 mg/dL (8.4-10.2); CREATININE SERUM 3.5 mg/dL (0.6-1.4); MAGNESIUM 1.9 mg/dL (1.6-3.0); PHOSPHOROUS 2.8 mg/dL (2.5-4.6); POTASSIUM 4.2 mmol/L (3.5-5.1); URIC ACID 5.9 mg/dL (2.6-7.2)
[2016-12-05 06:32] LABS: HEMATOCRIT 25.7 % (38.0-50.0); HEMOGLOBIN 8.8 gm/dL (13.0-16.0); MEAN CELL VOLUME 89.8 FL (83-96); MEAN CORPUSCULAR HEMOGLOBIN 30.7 PG (28-34); MEAN CORPUSCULAR HGB CONC 34.1 g/dL (30-36); MEAN PLATELET VOLUME 8.9 FL (6.5-11.5); RED BLOOD COUNT 2.86 X10e (3.90-5.60); RED CELL DISTRIBUTION WIDTH 14.5 % (11.0-15.5)
[2016-12-05 07:36] LABS: BUN/CREATININE RATIO 9.72; CALCIUM SERUM 9.5 mg/dL (8.4-10.2); CREATININE SERUM 3.7 mg/dL (0.6-1.4); GLOM FILT RATE Estimated 16.9 mL/min (>60); POTASSIUM 3.8 mmol/L (3.5-5.1)
[2016-12-05] MEDS ORDERED: COUMADIN10 MG PO (17:02)
[2016-12-05] MEDS ORDERED: TRAZODONE PO (17:03)
[2016-12-05] MEDS ORDERED: COUMADIN7.5 MG PO (17:03)
[2016-12-05] MEDS ORDERED: LOPRESSOR PO (17:04)
[2016-12-05] MEDS ORDERED: LASIX80 MG PO (17:04)
[2016-12-05] MEDS ORDERED: FUROSEMIDE40 MG PO (17:05)
[2016-12-05] MEDS ORDERED: ZAROXYLYN PO (17:07)
[2016-12-05] MEDS ORDERED: POTASSIUM CHLO10 MEQ PO (17:09)
[2017-01-10] MEDS ORDERED: COUMADIN10 MG PO (20:12)
[2017-01-16] MEDS ORDERED: VICODIN PO (16:38)
== END 2016-12-05 18:00 | disposition home or self-care (01) | DRG 291 ==
LOC: CED 16:34 → CEDOF 22:40 → CED 23:11 → CEDOF 12-03 01:13 → C5C 12-03 01:13
PROVIDERS: Emergency Medicine; Internal Medicine Cardiovascular Disease; Internal Medicine Nephrology
PROC: B24BYZZ Ultrasonography of Heart with Aorta using Other Contrast (ICD-10-PCS; principal; 2016-12-03)
DX: I13.0 Hypertensive heart and chronic kidney disease with heart failure and stage 1 through stage 4 chronic kidney disease, or unspecified chronic kidney disease (principal); I50.21 Acute systolic (congestive) heart failure; E87.2 Acidosis; N18.4 Chronic kidney disease, stage 4 (severe); N17.9 Acute kidney failure, unspecified; I27.2 Other secondary pulmonary hypertension; Z68.42 Body mass index [BMI] 45.0-49.9, adult; I48.2 Chronic atrial fibrillation; Z79.01 Long term (current) use of anticoagulants; Z95.0 Presence of cardiac pacemaker; E78.5 Hyperlipidemia, unspecified; D63.1 Anemia in chronic kidney disease; M10.9 Gout, unspecified; I25.10 Atherosclerotic heart disease of native coronary artery without angina pectoris; Z66 Do not resuscitate; E66.01 Morbid (severe) obesity due to excess calories; F41.9 Anxiety disorder, unspecified; I08.1 Rheumatic disorders of both mitral and tricuspid valves
CPT/HCPCS: 36415; 71020; 80048; 80076; 82553; 82728; 83540; 83550; 83735; 83880; 84100; 84443; 84484; 84550; 85025; 85027; 85610; 93005; 93306; 97161; 97166; 99285; G8978-GP; G8979-GP; G8980-GP; G8987-GO; G8988-GO; G8989-GO; J0885; J1940; J2916

== ENCOUNTER → 2016-12-16 | Outpatient (CLI) | payer OTHER ==
[~2016-12-16] MED LIST changes: +COUMADIN10 MG PO; +COUMADIN7.5 MG PO; +FOLIC ACID1 MG PO; +FUROSEMIDE40 MG PO; +LASIX80 MG PO; +LOPRESSOR PO; +TRAZODONE PO; +VICODIN PO; +ZAROXYLYN PO
[2016-12-16 10:48] LABS: HEMATOCRIT 28.5 % (38.0-50.0); HEMOGLOBIN 9.3 gm/dL (13.0-16.0); MEAN CORPUSCULAR HEMOGLOBIN 29.5 PG (28-34); MEAN CORPUSCULAR HGB CONC 32.5 g/dL (30-36); MEAN PLATELET VOLUME 8.9 FL (6.5-11.5); RED BLOOD COUNT 3.13 X10e (3.90-5.60); WHITE BLOOD COUNT 3.9 X10e3 (4.0-10.5)
[2016-12-16 11:10] LABS: BUN/CREATININE RATIO 11.53; CALCIUM SERUM 9.7 mg/dL (8.4-10.2); CREATININE SERUM 5.2 mg/dL (0.6-1.4); GLOM FILT RATE Estimated 11.2 mL/min (>60); POTASSIUM 4.8 mmol/L (3.5-5.1)
== END | disposition home or self-care (01) ==
LOC: CLAB 10:17
PROVIDERS: Internal Medicine Nephrology
DX: N18.4 Chronic kidney disease, stage 4 (severe) (principal)
CPT/HCPCS: 36415; 80048; 85027